=== PATIENT | male | born 1940 | race Caucasian/White ===

== ENCOUNTER 2023-07-22 11:16 | Emergency (ER) | payer OTHER, SELFPAY | END 2023-07-22 11:31 | disposition home or self-care (01) | LOC: ED 11:31 | PROVIDERS: Emergency Provider Family Medicine | DX: Z53.21 Procedure and treatment not carried out due to patient leaving prior to being seen by health care provider (principal) ==

== ENCOUNTER 2023-08-14 13:00 | Outpatient (RCR) | payer MEDICARE, BC, SELFPAY ==
--- NOTE | 2023-08-06 10:08 | URNOTE ---
Prior auth is not required for [employer] ([id number]). Pt has medicare/[employer]. Services are bases on medical necessity and follow medicare guidelines.
--- NOTE | 2023-08-07 11:17 | ONC.NURNOTE ---
Patient has PICC line for Daptomycin- he is scheduled to have his PICC pulled on 08/21 after the completion of the antibiotics This office has contacted the RN's in [facility] to request leaving PICC line in place for chemotherapy patient is agreeable to this plan awaiting call back from [facility] nurse to work on details to transition PICC care to this office Phone Numbers given by Shira daughter as follows (Anel) [facility] RN line [phone] [facility]- PICC line managed here ? [phone] [facility]- [facility]- Daptomycin management [phone] Anel is a good contact for coordination of care planning for [facility]
--- NOTE | 2023-08-13 11:57 | ONC.NURNOTE ---
Question was communicated to Dr Isbell office/[facility] about option of leaving PICC line for chemotherapy, with possible port placement later. Treatment recommendation letter received that PICC to be used for Day 1 tomorrow and then the PICC will be D/[facility] at a [facility] site at time of Port Placement. Dr Isbell is placing order for Port Placement at [facility]- their office is calling patient with this follow up Patient is scheduled to start C1D1 Gemzar at [facility] tomorrow.
[2023-08-14 12:16] VITALS: BP 137/73; PULSE 118; RESP 20; TEMP 37.5; O2SAT 89
[2023-08-14 12:46] LABS: Basophils Absolute Auto 0.02 K/uL (0.00-0.30); Basophils Percent Auto 0.2 % (0.0-3.0); Eosinophils Absolute Auto 0.11 K/uL (0.00-0.50); Eosinophils Percent Auto 1.1 % (0.0-7.0); Hematocrit 31.9 % (37.0-53.0); Hemoglobin* 10.9 gm/dL (13.5-17.5); Immature Granulocytes Abs Auto 0.02 K/uL (0.00-0.30); Immature Granulocytes Pct Auto 0.2 %; Lymphocytes Percent Auto 11.4 % (20-44); Mean Corpuscular HGB Conc 34 gm/dL (32-36); Mean Corpuscular Hemoglobin 33 pg (26-34); Mean Corpuscular Volume 96 fL (80-100); Monocytes Percent Auto 5.7 % (0.0-11.0); Neutrophils Percent Auto 81.4 % (42.0-72.0); Platelet Count* 172 K/uL (140-440); RDW Coefficient of Variation % 14.2 % (11.5-15.5); Red Blood Count 3.32 m/uL (4.30-5.90); White Blood Count* 10.15 K/uL (4.50-11.00)
[2023-08-14 12:47] LABS: Slide Review Reflex No
[2023-08-14 12:58] LABS: Albumin* 3.1 g/dL (3.3-5.0); Chloride* 96 mmol/L (96-114)
[2023-08-14 12:59] LABS: Potassium* 3.7 mmol/L (3.6-5.1); Sodium* 128 mmol/L (135-149)
[2023-08-14 13:01] LABS: Alkaline Phosphatase* 94 U/L (40-150); Anion Gap 8 mEq/L (7-15); Aspartate Amino Transferase* 19 U/L (12-35); Bilirubin Total* 1.4 mg/dL (0.1-1.5); Blood Urea Nitrogen* 28 mg/dL (7-30); Carbon Dioxide* 24 mmol/L (20-32); Creatinine* 0.7 mg/dL (0.5-1.5); Est. Creatinine Clearance* 57.79; Estimated Glomerular Filt Rate 91 ml/min; Total Protein* 6.3 g/dL (6.0-8.3)
[2023-08-14 13:02] LABS: Alanine Aminotransferase* 19 U/L (4-50); Calcium* 8.3 mg/dL (8.4-10.6); Glucose* 201 mg/dL (60-115)
[2023-08-14 13:40] VITALS: BP 111/64; PULSE 90; RESP 16; TEMP 37.8; O2SAT 90
--- NOTE | 2023-08-14 13:56 | ONC.NURNOTE ---
Patient here for teaching and first gemzar administration. Patient's vitals show tachycardia (irregularly irregular), low oxygen saturation, with low grade fever. Patient states has been very low energy, not sleeping well, heart irregularity noted over the last two weeks, high anxiety. Labs show slight elevation in WBC, with a low sodium. Discussed patient with Dr. Maza, she would like patient seen in the ER and push chemotherapy out one week after follow up with her next week. Patient and family were notified of this recommendation, they prefer to be seen in [place]. Labs from today printed and patient sent out, they will drive to [place].
--- NOTE | 2023-08-15 09:46 | ONC.NURNOTE ---
Daughter phoned with follow up information after being sent to the ER yesterday Pio is in the ICU at [facility] appts canceled for next week Daughter will phone this clinic when he is discharged and a the treatment plan is in place for further care
== END 2023-08-23 23:59 | disposition home or self-care (01) ==
LOC: CCIC 13:00
PROVIDERS: Visit Provider Internal Medicine Hematology & Oncology
DX: C25.9 Malignant neoplasm of pancreas, unspecified (principal)
CPT/HCPCS: 36415; 80053; 85025; 87040; 99202; 99205; 99211